=== PATIENT | female | born 2000 | race American Indian/Alaskan Native ===

== ENCOUNTER 2018-01-25 06:53 | Emergency (ER) | payer OTHER ==
[~2018-01-25] VITALS: Ht 157.5 cm; Wt 104.3 kg
[~2018-01-25 06:53] MED LIST: LAMO100 PO
[2018-01-25] MEDS ORDERED: CEFD300 PO (07:12)
[2018-01-25] MEDS ORDERED: TYLECOD3 PO (08:51)
[2018-01-25] MEDS ORDERED: Augmentin 875-1 EACH PO (08:51)
[2018-01-25] MEDS ORDERED: IBUP800 PO (08:51)
== END 2018-01-25 09:08 | disposition home or self-care (01) ==
LOC: ER 06:53
DX: K11.20 Sialoadenitis, unspecified (principal); Z79.899 Other long term (current) drug therapy; F31.9 Bipolar disorder, unspecified
CPT/HCPCS: 84703; 99282

== ENCOUNTER 2018-07-24 14:07 | Emergency (ER) | payer OTHER ==
[~2018-07-24] VITALS: Ht 157.5 cm; Wt 108.9 kg
[~2018-07-24 14:07] MED LIST changes: +Augmentin 875-1 EACH PO; +CEFD300 PO; +IBUP800 PO; +TYLECOD3 PO
[2018-07-24] MEDS ORDERED: PENVK500 PO (14:17)
== END 2018-07-24 14:24 | disposition home or self-care (01) ==
LOC: ER 14:07
DX: J02.0 Streptococcal pharyngitis (principal)
CPT/HCPCS: 99282

== ENCOUNTER 2019-01-16 16:55 | Emergency (ER) | payer OTHER ==
[~2019-01-16] VITALS: Ht 157.5 cm; Wt 111.1 kg
[~2019-01-16 16:55] MED LIST changes: +PENVK500 PO
[2019-01-16] MEDS ORDERED: SERT25 PO (17:28)
[2019-01-16] MEDS ORDERED: IBUP800 PO (17:53)
== END 2019-01-16 18:05 | disposition home or self-care (01) ==
LOC: ER 16:55
DX: J02.9 Acute pharyngitis, unspecified (principal); F31.9 Bipolar disorder, unspecified; Z79.899 Other long term (current) drug therapy
CPT/HCPCS: 87081; 87430; 99283

== ENCOUNTER 2019-06-06 04:48 | Emergency (ER) | payer OTHER ==
[~2019-06-06] VITALS: Ht 157.5 cm; Wt 108.9 kg
[~2019-06-06 04:48] MED LIST changes: +SERT25 PO
== END 2019-06-06 05:37 | disposition home or self-care (01) ==
LOC: ER 04:48
DX: J02.9 Acute pharyngitis, unspecified (principal); Z79.899 Other long term (current) drug therapy; F31.9 Bipolar disorder, unspecified
CPT/HCPCS: 87081; 87430; 99283; A9270-GY; J1100